=== PATIENT | female | born 1960 | race Caucasian/White ===

== ENCOUNTER 2017-08-20 04:03 | Inpatient (IN) | payer OTHER ==
[~2017-08-20] VITALS: Ht 162.6 cm; Wt 93.2 kg
[~2017-08-20 04:03] MED LIST: ASPIR-LOW81 MG PO; CONCERTA27 MG PO; CONCERTA54 MG PO; CYMBALTA30 MG PO; CYMBALTA60 MG PO; Cymbalta PO; DESYREL 150 MG150 MG PO; DESYREL12.5 MG PO; OMEPRAZOLE40 M1 PO; SEROQUEL50 MG PO; SEROquel PO; TRAZODONE HCL150 MG PO; TYLENOL WITH C1 EACH PO; ZOFRAN ODT4 MG PO
[2017-08-20 04:37] LABS: HEMATOCRIT 40.5 % (36.0-46.0); MCHC 33.8 G/DL (30.0-36.0); MCV 85.6 FL (83-99); MEAN PLAT.VOLUME 9.3 uM^3 (9.5-12.4); PLATELET COUNT 356 K/uL (156-360); RBC DIS.WIDTH-CV 12.4 % (11.8-14.6); RBC DIS.WIDTH-SD 38.6 % (39-53); RED BLOOD COUNT 4.73 M/uL (3.80-5.20); WHITE BLOOD COUNT 12.8 K/uL (4.1-10.2)
[2017-08-20 04:41] LABS: BILIRUBIN NEGATIVE; BLOOD NEGATIVE; COLOR AMBER ((YELLOW)); GLUCOSE (STRIP) NEGATIVE; KETONES 5; LEUKOCYTES NEGATIVE; NITRITE NEGATIVE; PROTEIN (STRIP) NEGATIVE; SPECIFIC GRAVITY 1.016 (1.000-1.030)
[2017-08-20 04:44] LABS: ADD MIUA? NO; UCUL ADDED? NO
[2017-08-20 04:47] LABS: CHLORIDE 107 mEq/L (99-109); POTASSIUM 3.2 mEq/L (3.7-5.4); SODIUM 140 mEq/L (136-147)
[2017-08-20 04:49] LABS: GLUCOSE 209 mg/dL (70-99)
[2017-08-20 04:50] LABS: ANION GAP 14 MEQ/L (2-14)
[2017-08-20 04:51] LABS: TOTAL BILIRUBIN 0.3 mg/dL (0.0-1.0)
[2017-08-20 04:53] LABS: ALKALINE PHOSPHATASE 116 IU/L (3-129); GFR ESTIMATE (CALCULATED) > 59 mL/min/
[2017-08-20 04:54] LABS: UREA NITROGEN (BUN) 14 mg/dL (9-23)
[2017-08-20 04:56] LABS: LIPASE 32 U/L (1.0-51.0)
[2017-08-20 07:40] LABS: INTERNAL CONTROL VALID? YES
[2017-08-20 08:04] LABS: C DIFF TOXIN POSITIVE (NEGATIVE)
[2017-08-20 08:05] LABS: PROBE CHECK PASS
[2017-08-20 08:10] VITALS: BP 141/65
[2017-08-20] MEDS ORDERED: ERGOCALCIF50000 UNIT PO (10:55)
[2017-08-20] MEDS ORDERED: PROBIOTIC1 EAC3 PO (10:57)
[2017-08-20] MEDS ORDERED: COQ-10100 MG PO (10:57)
[2017-08-20] MEDS ORDERED: NAPROSYN375 MG PO (10:57)
[2017-08-20 15:45] VITALS: BP 112/54
[2017-08-20 16:31] LABS: ANION GAP 7 MEQ/L (2-14); CHLORIDE 110 MEQ/L (99-109); GFR ESTIMATE (CALCULATED) > 59 mL/min/; POTASSIUM 3.8 MEQ/L (3.7-5.4); SAMPLE HEMOLYSIS CHECK 0; SAMPLE ICTERIC CHECK 0; SAMPLE LIPEMIA CHECK 0; SODIUM 142 MEQ/L (136-147); UREA NITROGEN (BUN) 8 mg/dL (9-23)
[2017-08-20 16:42] LABS: GLUCOSE 95 mg/dL (70-99)
[2017-08-20 20:19] VITALS: BP 116/56
[2017-08-21 00:07] VITALS: BP 122/58
[2017-08-21 03:41] VITALS: BP 129/62
[2017-08-21 07:25] VITALS: BP 130/64
[2017-08-21 07:38] LABS: EOSINOPHIL (%) 2.9 % (0-5); EOSINOPHIL COUNT 0.2 K/uL (0-0.3); HEMATOCRIT 29.9 % (36.0-46.0); IMMATURE GRANULOCYTE (%) 0.2 % (0.0-0.7); INSTRUMENT ABS NEUTROPHIL CT 4.5 K/uL; LYMPHOCYTE COUNT 3.1 K/uL (1.0-2.8); MCH 28.4 PG (29.0-34.0); MCHC 32.1 G/DL (30.0-36.0); MCV 88.5 FL (83-99); MEAN PLAT.VOLUME 9.2 uM^3 (9.5-12.4); MONOCYTE COUNT 0.5 K/uL (0-0.8); NEUTROPHIL (%) 53.6 % (45-76); NEUTROPHIL COUNT 4.5 K/uL (1.8-6.4); PLATELET COUNT 275 K/uL (156-360); RBC DIS.WIDTH-CV 12.9 % (11.8-14.6); RBC DIS.WIDTH-SD 41.7 % (39-53); WHITE BLOOD COUNT 8.4 K/uL (4.1-10.2)
[2017-08-21 07:47] LABS: ALKALINE PHOSPHATASE 62 IU/L (3-129); ANION GAP 6 MEQ/L (2-14); CHLORIDE 111 MEQ/L (99-109); GFR ESTIMATE (CALCULATED) > 59 mL/min/; GLUCOSE 104 mg/dL (70-99); POTASSIUM 3.7 MEQ/L (3.7-5.4); SAMPLE HEMOLYSIS CHECK 0; SAMPLE ICTERIC CHECK 0; SAMPLE LIPEMIA CHECK 0; SODIUM 142 MEQ/L (136-147); TOTAL BILIRUBIN 0.3 MG/DL (0.0-1.0); UREA NITROGEN (BUN) 5 mg/dL (9-23)
[2017-08-21 08:05] LABS: RED BLOOD COUNT 3.38 M/uL (3.80-5.20)
[2017-08-21 12:49] LABS: EOSINOPHIL (%) 3.4 % (0-5); EOSINOPHIL COUNT 0.3 K/uL (0-0.3); HEMATOCRIT 30.1 % (36.0-46.0); IMMATURE GRANULOCYTE (%) 0.4 % (0.0-0.7); LYMPHOCYTE COUNT 2.9 K/uL (1.0-2.8); MCH 29.9 PG (29.0-34.0); MCHC 33.6 G/DL (30.0-36.0); MCV 89.1 FL (83-99); MEAN PLAT.VOLUME 8.8 uM^3 (9.5-12.4); MONOCYTE (%) 6.2 % (3-12); MONOCYTE COUNT 0.5 K/uL (0-0.8); PLATELET COUNT 255 K/uL (156-360); RBC DIS.WIDTH-CV 12.9 % (11.8-14.6); RED BLOOD COUNT 3.38 M/uL (3.80-5.20); WHITE BLOOD COUNT 7.7 K/uL (4.1-10.2)
[2017-08-21 15:45] VITALS: BP 125/61
[2017-08-21 23:37] VITALS: BP 133/60
[2017-08-22 07:04] LABS: EOSINOPHIL (%) 3.7 % (0-5); EOSINOPHIL COUNT 0.3 K/uL (0-0.3); HEMATOCRIT 28.8 % (36.0-46.0); IMMATURE GRANULOCYTE (%) 0.3 % (0.0-0.7); INSTRUMENT ABS NEUTROPHIL CT 2.9 K/uL; LYMPHOCYTE COUNT 3.1 K/uL (1.0-2.8); MCH 29.2 PG (29.0-34.0); MCV 88.6 FL (83-99); MEAN PLAT.VOLUME 9.3 uM^3 (9.5-12.4); MONOCYTE COUNT 0.5 K/uL (0-0.8); NEUTROPHIL (%) 43.1 % (45-76); NEUTROPHIL COUNT 2.9 K/uL (1.8-6.4); PLATELET COUNT 263 K/uL (156-360); RBC DIS.WIDTH-CV 12.8 % (11.8-14.6); RBC DIS.WIDTH-SD 41.6 % (39-53); RED BLOOD COUNT 3.25 M/uL (3.80-5.20); WHITE BLOOD COUNT 6.8 K/uL (4.1-10.2)
[2017-08-22 07:40] VITALS: BP 134/61
[2017-08-22 15:32] LABS: ANION GAP 5 MEQ/L (2-14); CHLORIDE 110 MEQ/L (99-109); GFR ESTIMATE (CALCULATED) > 59 mL/min/; GLUCOSE 119 mg/dL (70-99); POTASSIUM 3.6 MEQ/L (3.7-5.4); SAMPLE HEMOLYSIS CHECK 0; SAMPLE ICTERIC CHECK 0; SAMPLE LIPEMIA CHECK 0; SODIUM 142 MEQ/L (136-147); UREA NITROGEN (BUN) 4 mg/dL (9-23)
[2017-08-22 15:35] VITALS: BP 140/60
[2017-08-22 22:06] VITALS: BP 135/80
[2017-08-23 16:44] VITALS: BP 129/66
[2017-08-24 07:00] LABS: BASOPHIL COUNT 0.1 K/uL (0-0.1); EOSINOPHIL (%) 5.1 % (0-5); EOSINOPHIL COUNT 0.3 K/uL (0-0.3); HEMATOCRIT 33.7 % (36.0-46.0); IMMATURE GRANULOCYTE (%) 1.1 % (0.0-0.7); IMMATURE GRANULOCYTE COUNT 0.1 K/uL; INSTRUMENT ABS NEUTROPHIL CT 2.6 K/uL; LYMPHOCYTE COUNT 2.9 K/uL (1.0-2.8); MCH 28.5 PG (29.0-34.0); MCHC 32.9 G/DL (30.0-36.0); MCV 86.4 FL (83-99); MEAN PLAT.VOLUME 9.1 uM^3 (9.5-12.4); MONOCYTE (%) 9.5 % (3-12); MONOCYTE COUNT 0.6 K/uL (0-0.8); NEUTROPHIL COUNT 2.6 K/uL (1.8-6.4); PLATELET COUNT 321 K/uL (156-360); RBC DIS.WIDTH-CV 12.7 % (11.8-14.6); RBC DIS.WIDTH-SD 39.6 % (39-53); WHITE BLOOD COUNT 6.6 K/uL (4.1-10.2)
[2017-08-24 07:22] LABS: ANION GAP 9 MEQ/L (2-14); CHLORIDE 108 MEQ/L (99-109); GFR ESTIMATE (CALCULATED) > 59 mL/min/; GLUCOSE 125 mg/dL (70-99); POTASSIUM 3.6 MEQ/L (3.7-5.4); SAMPLE HEMOLYSIS CHECK 0; SAMPLE ICTERIC CHECK 0; SAMPLE LIPEMIA CHECK 0; SODIUM 142 MEQ/L (136-147); UREA NITROGEN (BUN) 6 mg/dL (9-23)
[2017-08-24 17:31] VITALS: BP 146/72
[2017-08-24] MEDS ORDERED: PANTOPRAZOLE SO40 MG PO (18:18)
== END 2017-08-24 18:58 | disposition home or self-care (01) | DRG 372 ==
LOC: EME → EDBD 04:03 → 2EAST 06:15 → EDOF 06:15 → ENRESERV 06:17 → 2EAST 08:01 → ENRESERV 08:02 → CANRESERV 08:02 → 2EAST 08-24 18:58
PROVIDERS: Emergency Medicine; Internal Medicine; Specialist
DX: A04.72 Enterocolitis due to Clostridium difficile, not specified as recurrent (principal); K92.1 Melena; E87.2 Acidosis; E87.6 Hypokalemia; E83.51 Hypocalcemia; K21.9 Gastro-esophageal reflux disease without esophagitis; F32.9 Major depressive disorder, single episode, unspecified; D64.9 Anemia, unspecified; E66.9 Obesity, unspecified; R73.9 Hyperglycemia, unspecified; Z68.35 Body mass index [BMI] 35.0-35.9, adult; Z87.891 Personal history of nicotine dependence; Z23 Encounter for immunization
CPT/HCPCS: 74177; 80048; 80048 91; 80053; 81003; 83605; 83630; 83690; 85025; 85025 91; 85027; 87040; 87493; 90686; 93005; 99281; 99285; C9113; J0744; J1170; J1650; J2060; J2270; J2405; J3010; J3480; J7030; S0030

== ENCOUNTER 2018-01-26 10:34 | Emergency (ER) | payer OTHER ==
[~2018-01-26] VITALS: Ht 162.6 cm; Wt 93.8 kg
[~2018-01-26 10:34] MED LIST changes: +COQ-10100 MG PO; +ERGOCALCIF50000 UNIT PO; +NAPROSYN375 MG PO; +PANTOPRAZOLE SO40 MG PO; +PROBIOTIC1 EAC3 PO
[2018-01-26 11:44] LABS: HEMATOCRIT 36.9 % (36.0-46.0); HEMOGLOBIN 12.5 G/DL (11.9-15.5); MCH 28.8 PG (29.0-34.0); MCHC 33.9 G/DL (30.0-36.0); PLATELET COUNT 298 K/uL (156-360); RBC DIS.WIDTH-CV 12.6 % (11.8-14.6); RBC DIS.WIDTH-SD 38.8 % (39-53); RED BLOOD COUNT 4.34 M/uL (3.80-5.20); WHITE BLOOD COUNT 15.7 K/uL (4.1-10.2)
[2018-01-26 11:53] LABS: CHLORIDE 107 mEq/L (99-109); POTASSIUM 4.3 mEq/L (3.7-5.4); SODIUM 140 mEq/L (136-147)
[2018-01-26 11:55] LABS: GLUCOSE 127 mg/dL (70-99)
[2018-01-26 11:59] LABS: CREATININE 0.8 mg/dL (0.6-1.3); GFR ESTIMATE (CALCULATED) > 59 mL/min/; UREA NITROGEN (BUN) 19 mg/dL (9-23)
[2018-01-26] MEDS ORDERED: FLAGYL500 MG PO (14:39)
[2018-01-26] MEDS ORDERED: ZOFRAN4 MG SL (14:39)
[2018-01-26 15:08] LABS: ALBUMIN 3.8 g/dL (3.2-4.8)
[2018-01-26 15:11] LABS: TOTAL PROTEIN 6.8 g/dL (6.4-8.3)
[2018-01-26 15:12] LABS: TOTAL BILIRUBIN 0.4 mg/dL (0.0-1.0)
[2018-01-26 15:13] LABS: ALKALINE PHOSPHATASE 101 IU/L (3-129)
[2018-01-26 15:16] LABS: AST (GOT) 18 IU/L (2-34); DIRECT BILIRUBIN 0.2 mg/dL (0.0-0.3)
[2018-01-26 15:17] LABS: ALT (GPT) 31 IU/L (3-49); LIPASE 11 U/L (1.0-51.0)
[2018-01-26 15:48] VITALS: BP 134/67
[2018-01-26 15:58] LABS: APPEARANCE CLEAR ((CLEAR)); BILIRUBIN NEGATIVE; BLOOD NEGATIVE; COLOR STRAW ((YELLOW)); GLUCOSE (STRIP) NEGATIVE; KETONES NEGATIVE; LEUKOCYTES NEGATIVE; NITRITE NEGATIVE; PROTEIN (STRIP) NEGATIVE; SPECIFIC GRAVITY 1.039 (1.000-1.030); UCUL ADDED? NO; UROBILINOGEN 0.2 MG/DL (0.2-1.0)
[2018-01-26 16:17] LABS: C DIFF TOXIN POSITIVE (NEGATIVE)
== END 2018-01-26 15:49 | disposition home or self-care (01) ==
LOC: EME 10:34
PROVIDERS: Physician Assistant
DX: A04.72 Enterocolitis due to Clostridium difficile, not specified as recurrent (principal); K21.9 Gastro-esophageal reflux disease without esophagitis; K58.9 Irritable bowel syndrome, unspecified; F32.9 Major depressive disorder, single episode, unspecified; F90.9 Attention-deficit hyperactivity disorder, unspecified type; Z87.891 Personal history of nicotine dependence
CPT/HCPCS: 74177; 80048; 80076; 81003; 83605; 83630; 83690; 85027; 86850; 86900; 86901; 87040; 87493; 87506; 99281; 99284; J1200; J2270; J2765; J7030

== ENCOUNTER 2018-04-30 15:35 | Inpatient (IN) | payer OTHER ==
[~2018-04-30] VITALS: Ht 162.6 cm; Wt 86.0 kg
[~2018-04-30 15:35] MED LIST changes: +FLAGYL500 MG PO; +ZOFRAN4 MG SL
[2018-04-30 16:38] LABS: HEMATOCRIT 38.5 % (36.0-46.0); HEMOGLOBIN 13.1 G/DL (11.9-15.5); MCH 29.7 PG (29.0-34.0); MCV 87.3 FL (83-99); PLATELET COUNT 266 K/uL (156-360); RBC DIS.WIDTH-CV 12.7 % (11.8-14.6); RBC DIS.WIDTH-SD 40.4 % (39-53); RED BLOOD COUNT 4.41 M/uL (3.80-5.20); WHITE BLOOD COUNT 6.9 K/uL (4.1-10.2)
[2018-04-30 16:48] LABS: ALBUMIN 4.3 g/dL (3.2-4.8); CHLORIDE 110 mEq/L (99-109); POTASSIUM 3.9 mEq/L (3.7-5.4); SODIUM 143 mEq/L (136-147)
[2018-04-30 16:51] LABS: GLUCOSE 137 mg/dL (70-99); TOTAL PROTEIN 7.3 g/dL (6.4-8.3)
[2018-04-30 16:52] LABS: TOTAL BILIRUBIN 0.4 mg/dL (0.0-1.0)
[2018-04-30 16:53] LABS: SERUM ETHYL ALCOHOL < 10 mg/dL
[2018-04-30 16:54] LABS: CREATININE 0.9 mg/dL (0.6-1.3); GFR ESTIMATE (CALCULATED) > 59 mL/min/
[2018-04-30 16:55] LABS: ALKALINE PHOSPHATASE 87 IU/L (3-129)
[2018-04-30 16:56] LABS: AST (GOT) 19 IU/L (2-34); UREA NITROGEN (BUN) 11 mg/dL (9-23)
[2018-04-30 16:58] LABS: ACETAMINOPHEN (TYLENOL) < 10 mcg/mL (10-30); ALT (GPT) 27 IU/L (3-49); SALICYLATE < 5.0 MG/DL (15-30)
[2018-04-30 18:21] LABS: APPEARANCE SL.HAZY ((CLEAR)); BILIRUBIN NEGATIVE; BLOOD NEGATIVE; COLOR YELLOW ((YELLOW)); GLUCOSE (STRIP) NEGATIVE; KETONES NEGATIVE; LEUKOCYTES TRACE; NITRITE NEGATIVE; PROTEIN (STRIP) 30; SPECIFIC GRAVITY 1.032 (1.000-1.030); UROBILINOGEN 0.2 MG/DL (0.2-1.0)
[2018-04-30 18:32] LABS: BACTERIA RARE /HPF; EPITHELIAL CELLS RARE /HPF; MUCUS 4+ /LPF
[2018-04-30 18:35] LABS: AMPHETAMINE NEGATIVE (500 ng/mL); BARBITURATES NEGATIVE (200 ng/mL); BENZODIAZEPINES NEGATIVE (150 ng/mL); BUPRENORPHINE NEGATIVE (10 ng/mL); COCAINE NEGATIVE (150 ng/mL); METHADONE NEGATIVE (200 ng/mL); METHAMPHETAMINE NEGATIVE (500 ng/mL); OPIATES (MORPHINE) NEGATIVE (100 ng/mL); OXYCODONE NEGATIVE (100 ng/mL); PHENCYCLIDINE NEGATIVE (25 ng/mL); PROPOXYPHENE NEGATIVE (300 ng/mL); THC CANNABINOIDS PRESUMPTIVE POSITIVE (50 ng/mL); TRICYCLIC ANTIDEPRESSANTS NEGATIVE (300 ng/mL)
[2018-05-01] MEDS ORDERED: Lexapro PO (00:58)
[2018-05-01] MEDS ORDERED: ULTRAM50 MG PO (00:59)
[2018-05-01] MEDS ORDERED: BENTYL10 MG PO (01:00)
[2018-05-01 01:38] VITALS: BP 111/59
[2018-05-01 07:55] VITALS: BP 120/58
[2018-05-01 16:41] VITALS: BP 145/66
[2018-05-02 08:27] VITALS: BP 163/72
[2018-05-02 13:20] VITALS: BP 121/64
[2018-05-02 16:31] VITALS: BP 117/56
[2018-05-03 07:45] VITALS: BP 124/70
[2018-05-03] MEDS ORDERED: ARIPIPRAZOLE2 MG PO (11:13)
[2018-05-03] MEDS ORDERED: ESCITALOPRAM OX20 MG PO (11:13)
== END 2018-05-03 12:40 | disposition home or self-care (01) | DRG 885 ==
LOC: EME 15:35 → EDOF 22:55 → 1WEST 22:55 → ENRESERV 05-01 00:53 → 1WEST 05-01 01:10
PROVIDERS: Emergency Medicine
DX: F33.2 Major depressive disorder, recurrent severe without psychotic features (principal); T40.4X2A Poisoning by other synthetic narcotics, intentional self-harm, initial encounter; Z63.5 Disruption of family by separation and divorce; F90.9 Attention-deficit hyperactivity disorder, unspecified type; K21.9 Gastro-esophageal reflux disease without esophagitis; K58.9 Irritable bowel syndrome, unspecified; Z87.891 Personal history of nicotine dependence
CPT/HCPCS: 80053; 81003; 84999; 85027; 90837; 93005; 99281; 99285; G0480; J1200; J7030; Q0177